=== PATIENT | male | born 1950 | race Caucasian/White ===

== ENCOUNTER 2021-03-05 08:06 | Inpatient (IN) ==
[2021-03-05] MEDS ORDERED: Aspirin 81 MG TAB.CHEW PO ONE (08:11)
[2021-03-05 08:37] LABS: Basophils % 0.8 %; Hemoglobin 15.9 g/dL (12.9-16.9); Mean Corpuscular Hemoglobin 30.9 pg (28.0-33.3); Mean Corpuscular Volume 89.9 fL (83.0-100.0); Mean Platelet Volume 10.4 fL (9.4-12.4)
[2021-03-05 08:39] LABS: Basophils # 0.1 K/mcL (0.0-0.2); Eosinophils # 0.3 K/mcL (0.0-0.6); Eosinophils % 4.1 %; Hematocrit 46.2 % (37.5-50.1); Immature Granulocytes % 0.3 % (0-4); Immature Platelets 6.5 % (1.1-6.1); Lymphocytes # 1.5 K/mcL (0.6-4.6); Lymphocytes % 20.1 %; Mean Corpuscular HGB Conc 34.4 g/dL (31.6-35.5); Monocytes # 0.7 K/mcL (0.0-1.3); Monocytes % 9.4 %; Neutrophils # 4.8 K/mcL (1.6-8.9); Platelet Count 125 K/mcL (140-400); Red Blood Count 5.14 M/mcL (4.19-5.50); Segmented Neutrophils % 65.3 %; White Blood Count 7.3 K/mcL (4.3-11.1)
[2021-03-05 08:51] LABS: Platelet Estimate Slight Decrease (Normal)
[2021-03-05 08:54] LABS: BUN/Creatinine Ratio 15 (6-26); Blood Urea Nitrogen 12 mg/dL (8-23); Calcium 9.7 mg/dL (8.6-10.3); Carbon Dioxide 28 mEq/L (23-29); Chloride 104 mEq/L (98-107); Glucose 95 mg/dL (70-105); Osmolality,Calculated 288 (280-300); Potassium 3.7 mEq/L (3.5-5.1); Sodium 139 mEq/L (136-145); Troponin I 0.57 ng/mL (< 0.04); eGFR For African Americans > 60 (> 60); eGFR For Non-African Americans > 60 (> 60)
[2021-03-05] MEDS ORDERED: *HR* Heparin 5,000 UNIT/ML VIAL IVP PRN ×2 (08:56)
[2021-03-05] MEDS ORDERED: *HR* Heparin 5,000 UNIT/ML VIAL IVP ONE (08:56)
[2021-03-05] MEDS ORDERED: Heparin 25,000UNIT/250ML 1/2NS 25,000 UNIT/250 ML IV.SOLN IVC SCH (09:00)
[2021-03-05 09:02] LABS: INR 1.1; Prothrombin Time 12.4 Seconds (9.4-12.1)
[2021-03-05 09:17] LABS: Heparin anti-factor XA UFH < 0.04 IU/mL (0.30-0.70)
[2021-03-05] MEDS ORDERED: Perflutren Lipid Microsphere 1.3 ML in 0.9 % Sodium Chloride 8.7 ML IVP PRN ×2 (09:17→09:21)
[2021-03-05] MEDS ORDERED: Melatonin 3 MG TABLET PO PRN (09:22)
[2021-03-05] MEDS ORDERED: Naloxone 0.4 MG/ML INJ IVP PRN (09:22)
[2021-03-06 05:08] LABS: Hemoglobin 16.2 g/dL (12.9-16.9); Immature Platelets 6.7 % (1.1-6.1); Mean Corpuscular HGB Conc 33.8 g/dL (31.6-35.5); Mean Corpuscular Hemoglobin 30.6 pg (28.0-33.3); Mean Corpuscular Volume 90.7 fL (83.0-100.0); Mean Platelet Volume 10.8 fL (9.4-12.4); Red Blood Count 5.29 M/mcL (4.19-5.50); Red Cell Distribution Width 13.1 % (11.5-14.5); White Blood Count 7.7 K/mcL (4.3-11.1)
[2021-03-06 05:21] LABS: BUN/Creatinine Ratio 19 (6-26); Blood Urea Nitrogen 15 mg/dL (8-23); Calcium 9.2 mg/dL (8.6-10.3); Carbon Dioxide 25 mEq/L (23-29); Chloride 104 mEq/L (98-107); Glucose 81 mg/dL (70-105); Magnesium 1.7 mg/dL (1.6-2.6); Osmolality,Calculated 290 (280-300); Potassium 3.8 mEq/L (3.5-5.1); Sodium 140 mEq/L (136-145); eGFR For African Americans > 60 (> 60); eGFR For Non-African Americans > 60 (> 60)
[2021-03-06] MEDS: Aspirin 81 MG TAB.CHEW PO SCH (08:10)
[2021-03-06] MEDS: Metoprolol XL (24 HR) Succ 25 MG TAB.ER.24H PO SCH (08:10)
[2021-03-06] MEDS ORDERED: *HR* Heparin 10,000 UNIT/10 ML VIAL ONE ×2 (08:41→09:27)
[2021-03-06] MEDS ORDERED: 0.9 % Sodium Chloride 2,000 ML ONE (08:41)
[2021-03-06] MEDS ORDERED: Heparin 1,000 UNITS/500 mL 500 ML ONE ×2 (08:41→09:48)
[2021-03-06] MEDS ORDERED: Nitroglycerin 1,000 MCG/5 ML VIAL IV ONE (08:42)
[2021-03-06] MEDS ORDERED: ISOVUE-370 200 ML INFUS..BTL ONE ×2 (08:42→09:27)
[2021-03-06] MEDS ORDERED: *HR* FentaNYL (PF) 100 MCG/2 ML VIAL ONE ×2 (08:47→09:46)
[2021-03-06] MEDS ORDERED: *HR* Midazolam HCl 2 MG/2 ML VIAL ONE ×2 (08:47→09:46)
[2021-03-06] MEDS ORDERED: Metoprolol XL (24 HR) Succ 25 MG TAB.ER.24H PO SCH (09:00)
[2021-03-06] MEDS ORDERED: Tirofiban 12.5 MG/250ML 12.5 MG/250 ML BAG ONE (09:44)
[2021-03-06] MEDS ORDERED: *HR* Ticagrelor 90 MG TABLET ONE (10:16)
[2021-03-06] MEDS ORDERED: Tirofiban 12.5 MG/250ML 12.5 MG/250 ML BAG IVC SCH (10:30)
[2021-03-06] MEDS: *HR* Ticagrelor 90 MG TABLET PO SCH (19:32)
[2021-03-07 06:05] LABS: Hematocrit 42.3 % (37.5-50.1); Hemoglobin 14.8 g/dL (12.9-16.9); Immature Platelets 6.6 % (1.1-6.1); Mean Corpuscular Hemoglobin 31.2 pg (28.0-33.3); Mean Corpuscular Volume 89.2 fL (83.0-100.0); Mean Platelet Volume 11.2 fL (9.4-12.4); Red Blood Count 4.74 M/mcL (4.19-5.50); Red Cell Distribution Width 12.9 % (11.5-14.5); White Blood Count 8.7 K/mcL (4.3-11.1)
[2021-03-07 06:13] VITALS: BP 131/74; PULSE 67; TEMP 97.9; O2SAT 97
[2021-03-07 06:22] LABS: BUN/Creatinine Ratio 18 (6-26); Blood Urea Nitrogen 13 mg/dL (8-23); Calcium 8.6 mg/dL (8.6-10.3); Carbon Dioxide 25 mEq/L (23-29); Chloride 106 mEq/L (98-107); Glucose 93 mg/dL (70-105); Osmolality,Calculated 288 (280-300); Potassium 3.4 mEq/L (3.5-5.1); Sodium 139 mEq/L (136-145); eGFR For African Americans > 60 (> 60); eGFR For Non-African Americans > 60 (> 60)
[2021-03-07] MEDS: Aspirin 81 MG TAB.CHEW PO SCH (09:33)
[2021-03-07] MEDS: *HR* Ticagrelor 90 MG TABLET PO SCH (09:34)
[2021-03-07] MEDS: Metoprolol XL (24 HR) Succ 25 MG TAB.ER.24H PO SCH (09:34)
== END 2021-03-07 11:35 | disposition home or self-care (01) | DRG 247 ==
LOC: EMEROOARM 08:06 → 2NENU 08:06 → SUATTDRO 16:05
PROVIDERS: ADMIT Internal Medicine; ATTEND Internal Medicine